=== PATIENT | female | born 1975 | race Caucasian/White ===

== ENCOUNTER 2024-08-22 15:45 | Outpatient (CLI) | payer OTHER, SELFPAY ==
--- NOTE | ~2024-08-22 | MR_ITS ---
MRI of the right foot Clinical history osteomyelitis of fifth toe TECHNIQUE: Sagittal T1-weighted and STIR images, axial proton-density and proton-density fat-sat imag es, and coronal T1-weighted and proton-density fat-sat images were performed. FINDINGS: T1 marrow signal is preserved throughout the foot, without distinct evidence for osteomyeli tis. Questionable mild marrow edema in the fifth proximal phalanx, which could reflect nonspecific st ress response or reactive marrow edema. There is mild to moderate degenerative change of the first MT P joint, with focal subchondral cystic change in the first metatarsal head. Remaining joint spaces ap pear intact. No significant joint effusion identified. Intrinsic musculature of the foot is unremarkable. Plantar fascia intact. There is severe tendinosis, with marked thickening and hyperintense signal of the flexor hallucis longus tendon, from the level of the hindfoot to the level of the sesamoids, with possible superimposed low-grade partial interstit ial tearing. Remaining flexor and extensor tendons are intact. No intermetatarsal bursitis or Prather' s neuroma. IMPRESSION: No evidence for osteomyelitis. Possible minimal nonspecific reactive marrow edema or stress response in the fifth proximal phalanx. Severe tendinosis of the flexor hallucis longus tendon, as detailed above, with possible superimposed low-grade interstitial tearing. Mild to moderate degenerative change of the first MTP joint. Reviewed, dictated and finalized at [facility]. IMPRESSION: No evidence for osteomyelitis. Possible minimal nonspecific reactive marrow susan ma or stress response in the fifth proximal phalanx. Severe tendinosis of the flexor hallucis longus tendon, as detailed above, with possible superimposed low-grade interstitial tearing. Mild to moderate degenerative change of the first MTP joint.
== END 2024-08-22 15:46 | disposition home or self-care (01) ==
LOC: GOSHIMG 15:46
PROVIDERS: PCP Podiatrist Foot & Ankle Surgery; Visit Provider Podiatrist Foot & Ankle Surgery
DX: M67.873 Other specified disorders of tendon, right ankle and foot (principal); M19.071 Primary osteoarthritis, right ankle and foot
CPT/HCPCS: 73718